=== PATIENT | male | born 1950 ===

== ENCOUNTER 2018-12-08 06:04 | Day surgery (SDC) | payer MEDICAID ==
[~2018-12-08 06:04] MED LIST: Cyclopentolate 1% Opth (2 ml) OS SCH; Ketorolac Tromethamine 0.5% Opth Soln (3 ml) OS SCH; Lactated Ringer's 500 ML IV ONE; Ofloxacin 0.3% Ophth Soln OS SCH; Phenylephrine 2.5% Opht Soln OS SCH; Tropicamide 1% Opht SOLUTION OS SCH
[2018-12-08 07:01] VITALS: BMI 22.9
[2018-12-08] MEDS ORDERED: Lactated Ringer's 500 ML IV ONE (07:35)
[2018-12-08] MEDS ORDERED: Lidocaine 2% MPF (5 ml) Inj ONE (07:36)
[2018-12-08] MEDS ORDERED: Chondroitin/Hyaluronate Opth Syringe KIT (0.55 ml-0.5 ml) IO ONE (07:37)
[2018-12-08] MEDS ORDERED: Tobramycin/Dexamethasone OPHT OINT ONE (07:37)
[2018-12-08] MEDS ORDERED: Tetracaine 0.5% Ophth (OR ONLY) ONE (07:37)
[2018-12-08] MEDS ORDERED: Carbachol 0.01% IO ONE (07:37)
[2018-12-08] MEDS ORDERED: Tobramycin/Dexamethasone (Tobradex) Opth Sol (2.5 ml) ONE (07:37)
[2018-12-08] MEDS ORDERED: Povidone Iodine Ophthalmic 5% Soln ONE (07:37)
[2018-12-08] MEDS ORDERED: Lidocaine Hydrochloride 10 ML INJ ONE (07:51)
[2018-12-08] MEDS ORDERED: Propofol 10 mg/ml Inj (20 ML) ONE (09:05)
[2018-12-08] MEDS ORDERED: acetaZOLAMIDE 500 mg SR Cap PO ONE (09:28)
[2018-12-08 09:43] VITALS: O2SAT 100
[2018-12-08 09:58] VITALS: RESP 15
[2018-12-08 11:32] VITALS: BP 145/75; PULSE 55; TEMP 97.9
--- NOTE | 2018-12-09 05:45 | OP ---
PROCEDURE DATE: 12/08/2018 PREOPERATIVE DIAGNOSIS: Cataract, left eye. POSTOPERATIVE DIAGNOSIS: Cataract, left eye. OPERATIVE PROCEDURE: Cataract extraction with implant, left eye. ANESTHESIA TYPE: Local, standby. COMPLICATIONS: None. DESCRIPTION OF PROCEDURE: Local anesthesia was achieved using a mixture of 1% lidocaine and Amphadase. The patient was then prepped and draped in the usual sterile fashion for ophthalmic surgery. Betadine drops were placed into the eye. A lid speculum was used, and a sideport incision was made using a 15-degree blade. Viscoelastic was used to fill the anterior chamber, and a 2.7-mm slit blade was used to create a surgical opening. Additional viscoelastic was placed into the eye, and a capsulorrhexis was performed. Hydrodissection and delineation were then carried out. Phacoemulsification of the nucleus was performed with ease, and cortical cleanup was achieved without difficulty. The capsular bag was refilled using viscoelastic, and a posterior chamber lens was inserted through the existing wound and placed into the capsular bag and easily centered. All viscoelastic was then aspirated from the eye, and Miochol was instilled for good symmetric pupillary constriction. The sideport wound was hydrated as necessary and a good watertight closure was observed at the conclusion of the case. A TobraDex soaked collagen shield was then placed over the eye. The lid speculum was removed. TobraDex ointment was placed onto the eye and a patch and shield were placed. The patient tolerated the procedure well. Vivek Quiles MD
== END 2018-12-08 10:58 | disposition home or self-care (01) ==
LOC: C.SDS 06:04
PROVIDERS: ATTEND Ophthalmology
DX: H26.9 Unspecified cataract (principal)
CPT/HCPCS: 66984; J2704; J7120